=== PATIENT | female | born 1985 | race African-American/Black ===

== ENCOUNTER 2016-07-16 00:27 | Emergency (ER) | payer BC ==
[2016-07-16] MEDS ORDERED: NORMAL SALINE 1000 ML 1,000 ML IV PRN (02:04)
[2016-07-16] MEDS ORDERED: MORPHINE SULFATE 10 MG/ML INJ IV ONE (02:04)
--- NOTE | 2016-07-16 02:04 | ER Document Report ---
ED GI/ - General Chief Complaint: Lower Abdominal Pain Stated Complaint: ABDOMINAL PAIN Time seen by provider: 02:04 Mode of Arrival: Ambulatory Information source: Patient TRAVEL OUTSIDE OF THE [place] IN LAST 30 DAYS: No - HPI Patient complains to provider of: Pelvic pain, Vaginal bleeding Onset: Other - Saturday Timing/Duration: Sudden, Persistent Quality of pain: Achy, Cramping Severity at maximum: Moderate Severity in ED: Moderate Pain Level: 3 Location: Pelvis Menstrual period history: Abnormal Associated symptoms: None Exacerbated by: Denies Relieved by: Denies Similar symptoms previously: Yes Recently seen / treated by doctor: Yes Notes: 07/16/16 02:31 Patient is a 31-year-old female presenting to the emergency room complaining of pelvic cramping with vaginal bleeding that's been going on since Saturday, states 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 and had a transvaginal ultrasound performed, it was quite painful during the procedure and she's been having vaginal bleeding since, prior to that she has not had any vaginal bleeding for 2 years, relates this to using Nexplanon, patient reports that during the ultrasound her physician found possible polyps and would like to schedule her for a preop visit which she has not yet done, patient has a history of endometriosis previously as well, patient denies any nausea vomiting or diarrhea , no dysuria or hematuria, denies - Related Data Allergies/Adverse Reactions: No Known Allergies Allergy (Verified 04/11/16 12:03) Past Medical History - General Information source: Patient - Social History Smoking Status: Current Every Day Smoker Family History: Reviewed & Not Pertinent Patient has suicidal ideation: No Patient has homicidal ideation: No - Past Medical History Cardiac Medical History: Reports: Hx Hypertension Renal/ Medical History: Denies: Hx Peritoneal Dialysis Past Surgical History: Reports: Hx Gynecologic Surgery - See history of present illness. - Immunizations Hx Diphtheria, Pertussis, Tetanus Vaccination: Yes Review of Systems - Review of Systems Constitutional: No symptoms reported EENT: No symptoms reported Cardiovascular: No symptoms reported Respiratory: No symptoms reported Gastrointestinal: No symptoms reported Genitourinary: No symptoms reported Female Genitourinary: See HPI Musculoskeletal: No symptoms reported Skin: No symptoms reported Hematologic/Lymphatic: No symptoms reported Neurological/Psychological: No symptoms reported -: Yes All other systems reviewed and negative Physical Exam - Vital signs Vitals: Temp Pulse Resp BP Pulse Ox 97.7 F 67 18 143/75 H 100 07/16/16 00:45 07/16/16 00:45 07/16/16 00:45 07/16/16 00:45 07/16/16 00:45 Interpretation: Normal - General General appearance: Appears well, Alert - HEENT Head: Normocephalic, Atraumatic Eyes: Normal Pupils: PERRL - Respiratory Respiratory status: No respiratory distress Chest status: Nontender Breath sounds: Normal Chest palpation: Normal - Cardiovascular Rhythm: Regular Heart sounds: Normal auscultation Murmur: No - Abdominal Inspection: Obese Distension: No distension Bowel sounds: Normal Tenderness: Tender - Mild suprapubic Organomegaly: No organomegaly - Genitourinary External exam: Normal Speculum exam: Cervix closed Vaginal bleeding: Mild Bimanuel exam: Normal - Back Back: Normal, Nontender - Extremities General upper extremity: Normal inspection, Nontender, Normal color, Normal ROM , Normal temperature General lower extremity: Normal inspection, Nontender, Normal color, Normal ROM , Normal temperature, Normal weight bearing. No: Ainsley's sign - Neurological Neuro grossly intact: Yes Cognition: Normal Orientation: AAOx4 [place] Coma Scale Eye Opening: Spontaneous [place] Coma Scale Verbal: Oriented [place] Coma Scale Motor: Obeys Commands Mihir Coma Scale Total: 15 Speech: Normal Motor strength normal: LUE, RUE, LLE, RLE Sensory: Normal - Psychological Associated symptoms: Normal affect, Normal mood - Skin Skin Temperature: Warm Skin Moisture: Dry Skin Color: Normal Course - Re-evaluation Re-evalutation: 07/16/16 04:28 Lab and imaging findings discussed with patient at bedside which are relatively unremarkable, chemistry hemolyzed twice, lab came the third time and attempted to draw but were unable to do so, patient reluctant to have further lab draws performed, I explained to her that I was more concerned about the CBC and other labs and chemistry, therefore chemistry was canceled, patient will be discharged with prescription for pain medication and information for follow-up, advised to return if symptoms worsen, patient acknowledges understanding and agreement with this plan - Vital Signs Vital signs: Temp Pulse Resp BP Pulse Ox 97.7 F 67 18 143/75 H 100 07/16/16 00:45 07/16/16 00:45 07/16/16 00:45 07/16/16 00:45 07/16/16 00:45 - Laboratory Result Diagrams: 07/16/16 02:32 07/16/16 02:32 Laboratory results interpreted by me: 07/16/16 07/16/16 02:32 02:32 Seg Neutrophils % 35.9 L Lymphocytes % 51.6 H Urine Blood MODERATE H - Diagnostic Test Radiology reviewed: Image reviewed, Reports reviewed Discharge - Discharge Clinical Impression: Pelvic pain, Vaginal bleeding Condition: Stable Disposition: HOME, SELF-CARE Instructions: Pelvic Pain ([facility]), Vaginal Bleeding ([facility]) Additional Instructions: Follow up with your MASKING MACHINE OPERATOR in 2-3 days. Return to the emergency room immediately if symptoms worsen or any additional concerns. Prescriptions: Oxycodone HCl/Acetaminophen [Percocet 5-325 mg Tablet] 1 - 2 tab PO ASDIR PRN # 15 tablet PRN Reason: Forms: Return to Work
[2016-07-16] MEDS ORDERED: ONDANSETRON HCL INJ/PF 4 MG/2 ML SDV IV ONE (02:42)
[2016-07-16 02:43] LABS: ABSOLUTE BASOPHILS # (AUTO) 0.1 10^3/uL (0.0-0.2); ABSOLUTE EOSINOPHILS # (AUTO) 0.2 10^3/uL (0.0-0.6); ABSOLUTE LYMPHOCYTES (AUTO) 4.3 10^3/uL (0.5-4.7); ABSOLUTE MONOCYTES (AUTO) 0.8 10^3/uL (0.1-1.4); BASOPHILS % (AUTO) 0.7 % (0-2); EOSINOPHILS % (AUTO) 2.7 % (0-6); HEMOGLOBIN 13.3 g/dL (12.0-15.5); HGB HCT DIFFERENCE -1.1; LYMPHOCYTES % (AUTO) 51.6 % (13-45); MEAN CORPUSCULAR HEMOGLOBIN 30.5 pg (27.0-33.4); MEAN CORPUSCULAR HGB CONC 32.3 g/dL (32.0-36.0); MEAN CORPUSCULAR VOLUME 94 fl (80-97); MONOCYTES % (AUTO) 9.1 % (3-13); RED BLOOD COUNT 4.35 10^6/uL (3.72-5.28); RED CELL DISTRIBUTION WIDTH 13.5 % (11.5-14.0); SEGMENTED NEUTROPHILS % (AUTO) 35.9 % (42-78); WHITE BLOOD COUNT 8.4 10^3/uL (4.0-10.5)
[2016-07-16 02:47] LABS: APPEARANCE,URINE CLEAR; BILIRUBIN,URINE NEGATIVE (NEGATIVE); GLUCOSE, URINE NEGATIVE (NEGATIVE); KETONES,URINE NEGATIVE (NEGATIVE); LEUKOCYTE ESTERASE,URINE NEGATIVE (NEGATIVE); NITRITE,URINE NEGATIVE (NEGATIVE); PROTEIN,URINE NEGATIVE (NEGATIVE); URINE SPECIFIC GRAVITY 1.005; UROBILINOGEN,URINE NEGATIVE mg/dL (<2.0)
[2016-07-16 05:22] VITALS: BP 122/88
[2016-07-16 05:32] LABS: CHLAM PCR NOT DETECTED (NOT DETECT)
== END 2016-07-16 05:11 | disposition home or self-care (01) ==
LOC: ER 00:27
DX: R10.2 Pelvic and perineal pain (principal); N93.9 Abnormal uterine and vaginal bleeding, unspecified; R10.30 Lower abdominal pain, unspecified; F17.210 Nicotine dependence, cigarettes, uncomplicated
CPT/HCPCS: 99284; 96361; 96374; 96375; 36415; 87210; 85025; 81025; 81001; 87491; 87591; 76856; 93976; J2270; J2405; J7030

== ENCOUNTER 2016-07-22 15:12 | Emergency (ER) | payer BC ==
--- NOTE | 2016-07-22 15:43 | ER Document Report ---
ED Medical Screen (RME) - General Stated Complaint: WOUND RECHECK Notes: Patient had an I&D performed right medial thigh is here for reevaluation. I greeted and performed a rapid initial assessment of this patient. Comprehensive ED assessment and evaluation of the patient, analysis of test results and completion of the medical decision making process will be conducted by additional ED providers. TRAVEL OUTSIDE OF THE [place] IN LAST 30 DAYS: No - Related Data Allergies/Adverse Reactions: No Known Allergies Allergy (Verified 04/11/16 12:03) Past Medical History - Past Medical History Cardiac Medical History: Reports: Hx Hypertension Renal/ Medical History: Denies: Hx Peritoneal Dialysis Past Surgical History: Reports: Hx Gynecologic Surgery - See history of present illness. - Immunizations Hx Diphtheria, Pertussis, Tetanus Vaccination: Yes Physical Exam - Vital signs Vitals: Temp Pulse Resp BP Pulse Ox 98.6 F 73 20 119/66 100 07/22/16 15:40 07/22/16 15:40 07/22/16 15:40 07/22/16 15:40 07/22/16 15:40 Course - Vital Signs Vital signs: Temp Pulse Resp BP Pulse Ox 98.6 F 73 20 119/66 100 07/22/16 15:40 07/22/16 15:40 07/22/16 15:40 07/22/16 15:40 07/22/16 15:40
--- NOTE | 2016-07-22 17:11 | ER Document Report ---
HPI - HPI Patient complains to provider of: wound check Pain Level: 4 Context: Patient is a 31-year-old female presents emergency department for wound check today. Patient states she had a medial 5 cyst drained on at her PCPs office and she comes in today with complaints of drainage and pain at the site. Patient states that she has only been taking Motrin for her pain but otherwise she is complaining of friction from her pants at the site and has questions about healing. Otherwise she denies any fevers or chills any additional bleeding from the site just mild drainage. Otherwise a healthy female - CARDIOVASCULAR Cardiovascular: DENIES: Chest pain - REPRODUCTIVE Reproductive: DENIES: : - DERM Skin Color: Normal Past Medical History - General Information source: Patient - Social History Smoking Status: Unknown if Ever Smoked Family History: Reviewed & Not Pertinent Patient has suicidal ideation: No Patient has homicidal ideation: No - Past Medical History Cardiac Medical History: Reports: Hx Hypertension Renal/ Medical History: Denies: Hx Peritoneal Dialysis Past Surgical History: Reports: Hx Gynecologic Surgery - See history of present illness. - Immunizations Hx Diphtheria, Pertussis, Tetanus Vaccination: Yes Vertical Provider Document - CONSTITUTIONAL Agree With Documented VS: Yes Exam Limitations: No Limitations General Appearance: WD/WN, No Apparent Distress - INFECTION CONTROL TRAVEL OUTSIDE OF THE [place] IN LAST 30 DAYS: No - RESPIRATORY O2 Sat by Pulse Oximetry: 100 - DERM Integumentary: Warm, Dry Notes: Evidence of a 2 cm in diameter lesion that could then I indeed previously with minor packing. No evidence of additional fluid collections tender to palpation but otherwise healing as expected. Course - Re-evaluation Re-evalutation: 07/22/16 23:10 Patient is a 31-year-old female presents emergency Department complaining of abscessed pain. She is concerned that more needs to be drained but there is no evidence of additional fluid collections to be drained. Patient educated on abscess and I&D care and can follow-up with her primary care provider as scheduled - Vital Signs Vital signs: Temp Pulse Resp BP Pulse Ox 98.6 F 73 20 119/66 100 07/22/16 15:40 07/22/16 15:40 07/22/16 15:40 07/22/16 15:40 07/22/16 15:40 Discharge - Discharge Clinical Impression: Wound check, abscess Condition: Good Disposition: HOME, SELF-CARE Additional Instructions: ABSCESS: You have an abscess (boil). This a pus-forming infection, usually due to staph. Some boils may be left to drain on their own, but most require lancing. From the time the tender lump first appears, it may be three or four days before the abscess is ready to elias. Local heat and rest help at this stage of treatment. An antibiotic may prevent spread of the infection. Once the abscess is opened, packing may be placed into it. This is done so pus is not sealed inside by premature closure of the cavity. The packing will be removed at your follow-up visit or you may be advised to remove it yourself at home. Sometimes this packing must be replaced a few times during healing. The wound will heal with surprisingly little scar. Depending on the size and location of an abscess, healing can take one to four weeks. You may shower and wash the area around the incision site two or three times a day. Antibiotics may be prescribed, but are usually not necessary after an abscess has been drained. If you develop fever, chills, worsening pain, or increasing swelling in the area, call the doctor or return immediately. POST INCISION AND DRAINAGE: You have had an incision made to allow drainage of an abscess. The incision must remain open so that pus and debris can drain from the wound. If the abscess cavity is large, packing is placed. This keeps the tissues from collapsing and trapping pus inside, while the body shrinks the cavity. The packing may need to be replaced every day or two. The physician will instruct you on the packing. Keep a bulky dressing over the area. Replace it if it becomes saturated with blood or pus. Do not disturb the packing (if present). You may shower and cleanse the area with gentle soap and warm water two or three times a day. Local warmth may be soothing, and may promote faster healing. Return if you develop high fever or chills, or if you note spreading redness, increasing swelling, or increasing tenderness. ORAL NARCOTIC MEDICATION: You have been given a prescription for pain control. This medication is a narcotic. It's best taken with food, as nausea can result if taken on an empty stomach. Don't operate machinery or drive within six hours of taking this medication. Do not combine this medicine with alcohol, or with any medication which can cause sedation (such as cold tablets or sleeping pills) unless you get permission from the physician. Narcotics tend to cause constipation. If possible, drink plenty of fluids and eat a diet high in fiber and fruits. CEPHALEXIN: The antibiotic you've been prescribed is a member of the cephalosporin class. This type of antibiotic covers a wide variety of infections, including those of the skin, lungs, and urinary tract. It's useful for staph infections. This antibiotic is slightly similar to the penicillin family. In rare cases , a person who is allergic to penicillin will also be allergic to this medication. If you have had a severe allergic reaction to penicillin, and have not taken this antibiotic since that time, notify your doctor. Antibiotics which cover many germs ("broad spectrum" antibiotics) are more likely to cause diarrhea or "yeast" infections. Women prone to vaginal yeast problems may suffer an attack after taking this antibiotic. In infants, oral thrush (white spots "stuck" on the cheek) or yeast diaper rash may result. See your doctor if these problems occur. Call at once if you develop itching, hives , shortness of breath, or lightheadedness. FOLLOW-UP CARE: Most simple abscesses will not require a follow up visit. If you had packing placed in the abscess, remove it as instructed by the physician. If you have been referred to a physician for follow-up care, call the physicians office for an appointment as you were instructed or within the next two days. If you experience worsening or a significant change in your symptoms, return to the Emergency Department at any time for re-evaluation. Prescriptions: Oxycodone HCl/Acetaminophen [Percocet 5-325 mg Tablet] 1 tab PO Q4HP PRN #10 tablet PRN Reason: Referrals: THERESA OCONNELL MD [Primary Care Provider] - Follow up in 1 week
[2016-07-22 18:00] VITALS: BP 132/72
== END 2016-07-22 17:33 | disposition home or self-care (01) ==
LOC: ER 15:12
DX: L72.8 Other follicular cysts of the skin and subcutaneous tissue (principal)
CPT/HCPCS: 99282

== ENCOUNTER 2016-07-25 10:40 | Emergency (ER) | payer BC ==
--- NOTE | 2016-07-25 10:48 | ER Document Report ---
ED Medical Screen (RME) - General Stated Complaint: PELVIC PAIN Notes: 31 yo female c/o pelvic pain x 2-3 days, progressively worsening. + vaginal discharge, + odor, no pain. + nausea, no vomiting. no urinary symptoms. + hx/ o endometriosis. this pain is similar but worse. TRAVEL OUTSIDE OF THE [place] IN LAST 30 DAYS: No - Related Data Allergies/Adverse Reactions: No Known Allergies Allergy (Verified 04/11/16 12:03) Past Medical History - Past Medical History Cardiac Medical History: Reports: Hx Hypertension Renal/ Medical History: Denies: Hx Peritoneal Dialysis Past Surgical History: Reports: Hx Gynecologic Surgery - See history of present illness. - Immunizations Hx Diphtheria, Pertussis, Tetanus Vaccination: Yes
--- NOTE | 2016-07-25 12:28 | ER Document Report ---
ED General - General Chief Complaint: Abdominal Pain Stated Complaint: PELVIC PAIN Mode of Arrival: Ambulatory Information source: Patient Notes: Patient is a 31 yo female with PMHx of endometriosis who presents with 2-3 day history of cramping constant lower pelvic pain. She endorses associated nausea and vaginal discharge (white/clear) with odor but denies any vaginal bleeding, fever, chills, vomiting, diarrhea, melena, BRBPR, hematuria or dysuruia. She received OBGYN care from [facility] and was told she most likely would need surgery. She had pelvic US on 07/12/16 and was told she had "fluid in her uterus." She has tried 800 mg ibuprofen which has not provided relief and applied heat which does provide minimal relief. She is sexually active, uses Nexplanon for contraception. TRAVEL OUTSIDE OF THE [place] IN LAST 30 DAYS: No - Related Data Allergies/Adverse Reactions: No Known Allergies Allergy (Verified 07/25/16 10:46) Past Medical History - Social History Smoking Status: Never Smoker Chew tobacco use (# tins/day): No Frequency of alcohol use: None Drug Abuse: None Family History: Reviewed & Not Pertinent Patient has suicidal ideation: No Patient has homicidal ideation: No - Past Medical History Cardiac Medical History: Reports: Hx Hypertension Renal/ Medical History: Denies: Hx Peritoneal Dialysis Past Surgical History: Reports: Hx Gynecologic Surgery - See history of present illness. - Immunizations Hx Diphtheria, Pertussis, Tetanus Vaccination: Yes Review of Systems - Review of Systems Constitutional: See HPI EENT: No symptoms reported Cardiovascular: No symptoms reported Respiratory: No symptoms reported Gastrointestinal: No symptoms reported Genitourinary: See HPI Female Genitourinary: See HPI Musculoskeletal: No symptoms reported Skin: No symptoms reported Hematologic/Lymphatic: No symptoms reported Neurological/Psychological: No symptoms reported Physical Exam - Vital signs Vitals: Temp Pulse Resp BP Pulse Ox 98.1 F 74 20 135/74 H 100 07/25/16 10:43 07/25/16 10:43 07/25/16 10:43 07/25/16 10:43 07/25/16 10:43 Interpretation: Hypertensive - but otherwise normal - Notes Notes: PHYSICAL EXAM: CONSTITUTIONAL: Alert and oriented, well-appearing and in no acute distress. HENT: Normocephalic, atraumatic. Moist mucous membranes. EYES: Pupils equal round and reactive to light, EOM intact. Sclera anicteric, conjunctiva are normal. No entrapment. HEART: Regular rate and rhythm without murmurs. LUNGS: CTAB and equal. No wheezes, rales or rhonchi. GI: Normactive bowel sounds. Soft, tender to palpation in suprapubic region, no rebound or guarding, non-distended. No organomegaly. no CVAT. LICENSED AUDIOLOGIST: External exam normal. No rashes or lesions. Scant white vaginal discharge, no vaginal bleeding. Cervix without lesions. No cervical motion tenderness. NEURO: Cranial nerves grossly intact. Normal sensory/motor exams. PSYCH: Normal mood, normal affect. SKIN: Warm and dry. Normal turgor. No rashes or lesions noted. Course - Re-evaluation Re-evalutation: I have consulted with the supervisory physician per [facility] guidelines. Patient seen and examined. Abdominal exam soft with tenderness to suprapubic region but no peritoneal signs, rebound, guarding. Pelvic exam with scant white discharge and tenderness but no vagina bleeding. Remainder of lab work unremarkable, G/C pending. CT of A/P with IV contrast negative for acute abnormalities other than moderate stool. Give IV pain medication with did provide relief. Discussed results of labs/imaging studies with patient- feel her pain is a flare of her endometriosis with concomittant constipation. Given scripts for pain/stool softener, advised to follow-up with OBGYN. Discharged home in stable condition. - Vital Signs Vital signs: Temp Pulse Resp BP Pulse Ox 98.6 F 98 18 130/67 H 100 07/25/16 16:28 07/25/16 16:28 07/25/16 16:28 07/25/16 16:28 07/25/16 16:28 - Laboratory Result Diagrams: 07/25/16 12:32 07/25/16 12:32 Laboratory results interpreted by me: 07/25/16 07/25/16 07/25/16 11:55 12:32 12:32 Seg Neutrophils % 41.3 L Lymphocytes % 47.7 H Total Protein 8.4 H Urine Ketones 80 H Urine Blood SMALL H Reviewed. - Diagnostic Test Radiology reviewed: Image reviewed, Reports reviewed Radiology results interpreted by me: 07/25/16 19:11 Negative for acute abnormal findings on CT of A/P with IV Cont. Discharge - Discharge Clinical Impression: Pelvic pain, Personal history of endometriosis Constipation Qualifiers: Constipation type: unspecified constipation type Qualified Code(s): K59.00 - Constipation, unspecified Condition: Stable Disposition: HOME, SELF-CARE Additional Instructions: ABDOMINAL PAIN: There are many causes of abdominal pain. Pain can mean a serious problem requiring surgery (such as appendicitis). It can also be an innocent problem that goes away on its own (such as a viral infection). Often, time must pass to determine the cause of pain. The physician does not feel that hospitalization is necessary, at present. Things may change within the next 24 hours. Call the doctor or come back for re- examination if any problems occur, such as: (1) Pain that becomes more severe, steady, or becomes concentrated in one specific area. Also, pain that is more severe with movement or coughing. (2) Vomiting that persists or becomes more frequent. (3) Blood in the vomitus, urine, or bowel movements. Blood in the stool may have a tarry or black appearance. (4) Shaking chills or fever greater than 100 degrees F. (5) The abdomen becomes more distended or swollen. (6) Bowel movements cease. (7) Failure to improve as expected. NORMAL EXAM AND WORKUP: At this time, your examination and workup show no significant abnormality. No significant abnormal physical findings are noted. All laboratory, EKG, and imaging (x-ray, CT scans, ultrasound) studies that were ordered show no significant abnormality. Although your examination and all studies that were ordered showed no significant abnormal finding, there are no examinations and no studies that are 100% accurate. There is always the possibility that some abnormality could exist and not be detected with physical examination or within the limits and capabilities of laboratory and other studies. You should return or follow up as you were instructed on your visit today for further evaluation if your symptoms do not resolve. CONSTIPATION: Constipation is a common problem. It is especially likely as you get older. Constipation is a common cause of abdominal pain, but sometimes causes no symptoms at all. Causes of constipation include certain medications, dehydration, diets, inactivity, and low-fiber intake. Rarely, it can be a symptom of underlying disease. The physician has evaluated you for this. Avoid constipation by eating a diet high in fiber, fruits, and vegetables. Drink plenty of liquids. Get regular exercise. If possible, avoid constipating medicines like narcotic pain medication. Some vitamin tablets can cause constipation. Stool softeners may be needed for difficult cases. An excellent stool softener is Konsyl which is available at [employer], and [employer] drug [employer]. Just add a teaspoon to a glass of pineapple or orange juice daily or twice a day if needed. Laxatives are useful for occasional constipation. You should use them only when necessary. Too-frequent use can make your bowels dependent on them. Some over the counter laxatives available without prescription are: Milk of Magnesia, 1-2 tablespoons twice a day Dulcolax, 5 mg pill or 10 mg suppository. Citrate of Magnesia, 4-5 ounces a day for a day or two For acute constipation, Fleet's Enemas and Dulcolax suppositories are helpful. Chronic, termite exterminator helper use of laxatives or enemas is not a good idea. Your bowel may become dependant on them. You do not need to have a bowel movement every day. Many people do fine with a bowel movement every three or four days. You should call your doctor or return for re-evaluation if you pass blood in the stool, or if you develop fever or increasing abdominal pain. BULK LAXATIVES: Bulk laxatives make the stool softer and bulkier. They're useful for preventing constipation. You can choose between psyllium, methylcellulose, and polycarbophil. They are available without a prescription. Psyllium brand names include Konsyl, Metamucil, Perdiem, Effer-Syllium and Hydrocil. It's available as powder, flavored drink powder, or chewable. The usual dose of psyllium powder is one heaping teaspoon in water each morning, increasing to twice a day if needed. Navarro juice can disguise the slightly grainy texture. Methylcellulose is marketed as Citrucel and other brands. The average dose is two grams in a cup of water one to three times a day. Polycarbophil is marketed as Fiber-Con. Take two tablets with a cup of water one to three times a day. LAXATIVE: A laxative agent has been prescribed for your condition. This should result in passage of stool within 12 hours. Some mild intestinal cramping is common as the hard stool begins to move. You may have loose or runny stools for a short time. Contact your doctor if there is severe cramping, vomiting, or passage of blood. Return for further care if this medicine fails to improve your condition. FOLLOW-UP CARE: If you have been referred to a physician for follow-up care, call the physician s office for an appointment as you were instructed or within the next two days. If you experience worsening or a significant change in your symptoms, notify the physician immediately or return to the Emergency Department at any time for re-evaluation. Prescriptions: Tramadol HCl [Ultram] 50 mg PO Q8HP PRN #10 tablet PRN Reason: Docusate Sodium [Colace 100 mg Capsule] 100 mg PO DAILY #30 capsule Forms: Elevated Blood Pressure Referrals: THERESA OCONNELL MD [Primary Care Provider] - Follow up as needed
[2016-07-25 12:42] LABS: APPEARANCE,URINE CLEAR; BILIRUBIN,URINE NEGATIVE (NEGATIVE); GLUCOSE, URINE NEGATIVE (NEGATIVE); KETONES,URINE 80 mg/dL (NEGATIVE); LEUKOCYTE ESTERASE,URINE NEGATIVE (NEGATIVE); NITRITE,URINE NEGATIVE (NEGATIVE); PROTEIN,URINE NEGATIVE (NEGATIVE); URINE SPECIFIC GRAVITY 1.019; UROBILINOGEN,URINE NEGATIVE mg/dL (<2.0)
[2016-07-25 13:07] LABS: ABSOLUTE EOSINOPHILS # (AUTO) 0.1 10^3/uL (0.0-0.6); ABSOLUTE LYMPHOCYTES (AUTO) 3.1 10^3/uL (0.5-4.7); ABSOLUTE MONOCYTES (AUTO) 0.6 10^3/uL (0.1-1.4); ABSOLUTE NEUT (AUTO) 2.6 10^3/uL (1.7-8.2); BASOPHILS % (AUTO) 0.6 % (0-2); EOSINOPHILS % (AUTO) 1.6 % (0-6); HEMATOCRIT 42.2 % (36.0-47.0); HEMOGLOBIN 14.1 g/dL (12.0-15.5); HGB HCT DIFFERENCE 0.1; LYMPHOCYTES % (AUTO) 47.7 % (13-45); MEAN CORPUSCULAR HEMOGLOBIN 31.2 pg (27.0-33.4); MEAN CORPUSCULAR HGB CONC 33.4 g/dL (32.0-36.0); MEAN CORPUSCULAR VOLUME 93 fl (80-97); MONOCYTES % (AUTO) 8.8 % (3-13); RED BLOOD COUNT 4.51 10^6/uL (3.72-5.28); RED CELL DISTRIBUTION WIDTH 13.6 % (11.5-14.0); SEGMENTED NEUTROPHILS % (AUTO) 41.3 % (42-78); WHITE BLOOD COUNT 6.4 10^3/uL (4.0-10.5)
[2016-07-25] MEDS ORDERED: KETOROLAC TROMETHAMINE INJ/PF 30 MG/1 ML SDV IV ONE (13:11)
[2016-07-25 13:23] LABS: ALANINE AMINOTRANSFERASE 29 U/L (9-52); ALBUMIN 4.8 g/dL (3.5-5.0); ALKALINE PHOSPHATASE 80 U/L (38-126); ANION GAP 14 (5-19); ASPARTATE AMINO TRANSFERASE 27 U/L (14-36); BILIRUBIN,TOTAL 0.6 mg/dL (0.2-1.3); BLOOD UREA NITROGEN 12 mg/dL (7-20); CARBON DIOXIDE 26 mmol/L (22-30); CHLORIDE 104 mmol/L (98-107); GLUCOSE 83 mg/dL (75-110); POTASSIUM 4.4 mmol/L (3.6-5.0); SODIUM 143.7 mmol/L (137-145); TOTAL PROTEIN 8.4 g/dL (6.3-8.2)
[2016-07-25] MEDS ORDERED: HYDROCODONE/ACETAMINOPHEN 5-325 MG TABLET PO ONE (13:44)
[2016-07-25 15:21] LABS: CHLAM PCR NOT DETECTED (NOT DETECT)
[2016-07-25 16:48] VITALS: BP 130/67
== END 2016-07-25 16:30 | disposition home or self-care (01) ==
LOC: ER 10:40
DX: K59.00 Constipation, unspecified (principal); R10.9 Unspecified abdominal pain; R10.2 Pelvic and perineal pain; N80.9 Endometriosis, unspecified
CPT/HCPCS: 99284; 96374; 36415; 87210; 85025; 81025; 80053; 81001; 87491; 87591; 74177; J1885

== ENCOUNTER 2016-08-26 17:02 | Emergency (ER) | payer BC ==
[2016-08-26] MEDS ORDERED: OXYCODONE-ACETAMINOPHEN 5-325 MG TABLET PO ONE (17:13)
--- NOTE | 2016-08-26 17:14 | ER Document Report ---
ED Medical Screen (RME) - General Stated Complaint: ABDOMINAL CRAMPING Time seen by provider: 17:10 Mode of Arrival: Ambulatory Information source: Patient Notes: Patient states she has a history of endometriosis, and is having a flareup. Light vaginal bleeding started last night, the patient has a lot of abdominal cramping. Patient states she is supposed to have a laparoscopic procedure to further evaluate the endometriosis. Denies fever, no nausea, vomiting, or diarrhea. Denies vaginal discharge prior to symptoms. I have greeted and performed a rapid initial assessment of this patient. A comprehensive ED assessment and evaluation of the patient, analysis of test results and completion of the medical decision making process will be conducted by additional ED providers. TRAVEL OUTSIDE OF THE [place] IN LAST 30 DAYS: No - Related Data Allergies/Adverse Reactions: No Known Allergies Allergy (Verified 08/26/16 17:12) Past Medical History - Past Medical History Cardiac Medical History: Reports: Hx Hypertension Renal/ Medical History: Denies: Hx Peritoneal Dialysis Past Surgical History: Reports: Hx Gynecologic Surgery - See history of present illness. - Immunizations Hx Diphtheria, Pertussis, Tetanus Vaccination: Yes Physical Exam - Vital signs Vitals: Temp Pulse Resp BP Pulse Ox 98.0 F 90 13 155/75 H 100 08/26/16 17:12 08/26/16 17:12 08/26/16 17:12 08/26/16 17:12 08/26/16 17:12 - Abdominal Inspection: Normal Notes: Abdomen soft, tenderness noted lower abdomen. Course - Vital Signs Vital signs: Temp Pulse Resp BP Pulse Ox 98.0 F 90 13 155/75 H 100 08/26/16 17:12 08/26/16 17:12 08/26/16 17:12 08/26/16 17:12 08/26/16 17:12
[2016-08-26 17:45] LABS: APPEARANCE,URINE CLEAR; BILIRUBIN,URINE NEGATIVE (NEGATIVE); GLUCOSE, URINE NEGATIVE (NEGATIVE); KETONES,URINE NEGATIVE (NEGATIVE); LEUKOCYTE ESTERASE,URINE NEGATIVE (NEGATIVE); NITRITE,URINE NEGATIVE (NEGATIVE); PROTEIN,URINE NEGATIVE (NEGATIVE); URINE SPECIFIC GRAVITY 1.015; UROBILINOGEN,URINE NEGATIVE mg/dL (<2.0)
[2016-08-26] MEDS ORDERED: HYDROCODONE/ACETAMINOPHEN 5-325 MG 6 TAB/DSPK PO PRN (18:55)
--- NOTE | 2016-08-26 18:58 | ER Document Report ---
ED GI/ - General Chief Complaint: Abdominal Cramping Stated Complaint: ABDOMINAL CRAMPING Time seen by provider: 18:57 Mode of Arrival: Ambulatory Information source: Patient TRAVEL OUTSIDE OF THE [place] IN LAST 30 DAYS: No - HPI Patient complains to provider of: Pelvic pain, Vaginal bleeding Onset: Yesterday Timing/Duration: Gradual Quality of pain: Achy Severity at maximum: Moderate Severity in ED: Moderate Pain Level: 3 Location: Pelvis Vaginal bleeding (Compared to normal period): [employer] Associated symptoms: Nausea Exacerbated by: Denies Relieved by: Denies Similar symptoms previously: Yes Recently seen / treated by doctor: Yes Notes: 08/27/16 04:14 Patient is a 31-year-old female with a history of endometriosis who presents to the emergency room complaining of pelvic cramping and vaginal bleeding started yesterday, she reports her symptoms are similar to endometriosis flareups that she's had in the past, she follows with [facility] OPER[facility] in the [facility], [place], and reportedly is waiting a laparoscopic procedure for further treatment of her endometriosis, she denies any nausea, vomiting or diarrhea, no dysuria or hematuria - Related Data Allergies/Adverse Reactions: No Known Allergies Allergy (Verified 08/26/16 17:12) Past Medical History - General Information source: Patient - Social History Smoking Status: Unknown if Ever Smoked Chew tobacco use (# tins/day): No Frequency of alcohol use: None Drug Abuse: None Family History: Reviewed & Not Pertinent Patient has suicidal ideation: No Patient has homicidal ideation: No - Past Medical History Cardiac Medical History: Reports: Hx Hypertension Renal/ Medical History: Denies: Hx Peritoneal Dialysis Past Surgical History: Reports: Hx Gynecologic Surgery - See history of present illness. - Immunizations Hx Diphtheria, Pertussis, Tetanus Vaccination: Yes Review of Systems - Review of Systems Constitutional: No symptoms reported EENT: No symptoms reported Cardiovascular: No symptoms reported Respiratory: No symptoms reported Gastrointestinal: No symptoms reported Genitourinary: No symptoms reported Female Genitourinary: See HPI Musculoskeletal: No symptoms reported Skin: No symptoms reported Hematologic/Lymphatic: No symptoms reported Neurological/Psychological: No symptoms reported -: Yes All other systems reviewed and negative Physical Exam - Vital signs Vitals: Temp Pulse Resp BP Pulse Ox 98.0 F 90 13 155/75 H 100 08/26/16 17:12 08/26/16 17:12 08/26/16 17:12 08/26/16 17:12 08/26/16 17:12 Interpretation: Normal - General General appearance: Appears well, Alert - HEENT Head: Normocephalic, Atraumatic Eyes: Normal Pupils: PERRL - Respiratory Respiratory status: No respiratory distress Chest status: Nontender Breath sounds: Normal Chest palpation: Normal - Cardiovascular Rhythm: Regular Heart sounds: Normal auscultation Murmur: No - Abdominal Inspection: Normal Distension: No distension Bowel sounds: Normal Tenderness: Tender - Suprapubic Organomegaly: No organomegaly - Back Back: Normal, Nontender - Extremities General upper extremity: Normal inspection, Nontender, Normal color, Normal ROM , Normal temperature General lower extremity: Normal inspection, Nontender, Normal color, Normal ROM , Normal temperature, Normal weight bearing. No: Ainsley's sign - Neurological Neuro grossly intact: Yes Cognition: Normal Orientation: AAOx4 Mihir Coma Scale Eye Opening: Spontaneous Mihir Coma Scale Verbal: Oriented Reinholds Coma Scale Motor: Obeys Commands Mihir Coma Scale Total: 15 Speech: Normal Motor strength normal: LUE, RUE, LLE, RLE Sensory: Normal - Psychological Associated symptoms: Normal affect, Normal mood - Skin Skin Temperature: Warm Skin Moisture: Dry Skin Color: Normal Course - Re-evaluation Re-evalutation: 08/27/16 04:15 Patient symptoms consistent with endometriosis, she was provided with pain medication and advised to follow-up with her SWITCHBOARD OPERATOR RECEPTIONIST in the next 2-3 days or return if symptoms worsen, patient acknowledges understanding and agreement with this plan - Vital Signs Vital signs: Temp Pulse Resp BP Pulse Ox 98.4 F 68 16 128/73 H 99 08/26/16 19:25 08/26/16 19:25 08/26/16 19:25 08/26/16 19:25 08/26/16 19:25 - Laboratory Laboratory results interpreted by me: 08/26/16 17:25 Urine Blood LARGE H Discharge - Discharge Clinical Impression: Pelvic pain, Endometriosis Condition: Stable Disposition: HOME, SELF-CARE Instructions: Pelvic Pain ([facility]), Endometriosis ([facility]) Additional Instructions: Follow up with your SWITCHBOARD OPERATOR RECEPTIONIST in one to 2 days. Return to the emergency room immediately if symptoms worsen or any additional concerns. Prescriptions: Hydrocodone/Acetaminophen [Hydrocodon-Acetaminophen 5-325] 1 each PO Q6 #20 tablet Forms: Return to Work Referrals: THERESA OCONNELL MD [Primary Care Provider] - Follow up as needed
[2016-08-26 19:54] VITALS: BP 128/73
== END 2016-08-26 19:55 | disposition home or self-care (01) ==
LOC: ER 17:02
DX: N80.9 Endometriosis, unspecified (principal); R10.2 Pelvic and perineal pain; R11.0 Nausea; N93.9 Abnormal uterine and vaginal bleeding, unspecified; I10 Essential (primary) hypertension
CPT/HCPCS: 81001; 81025; 99284

== ENCOUNTER 2016-09-05 08:59 | Emergency (ER) | payer BC ==
[2016-09-05 11:11] LABS: APPEARANCE,URINE CLEAR; BILIRUBIN,URINE NEGATIVE (NEGATIVE); GLUCOSE, URINE NEGATIVE (NEGATIVE); KETONES,URINE TRACE mg/dL (NEGATIVE); LEUKOCYTE ESTERASE,URINE NEGATIVE (NEGATIVE); NITRITE,URINE NEGATIVE (NEGATIVE); PROTEIN,URINE NEGATIVE (NEGATIVE); URINE SPECIFIC GRAVITY 1.028; UROBILINOGEN,URINE NEGATIVE mg/dL (<2.0)
--- NOTE | 2016-09-05 11:36 | ER Document Report ---
ED Medical Screen (RME) - General Chief Complaint: Abdominal Pain Stated Complaint: ABDOMINAL CRAMPING Time seen by provider: 11:35 Mode of Arrival: Ambulatory Information source: Patient Notes: 31-year-old female presents to ED for lower pelvic pain. She has a history of endometriosis and have and is having a endometrial flare. She states she was scheduled to see the BREAKER TENDER on Saturday but he had to cancel the appointment and has rescheduled it for next . She states she supposed to have surgery at some point for the endometriosis and she was really upset that he was had to cancel her appointment. She states she usually takes ibuprofen and hydrocodone for her pain. She states she has ibuprofen in her purse that but has not taken it this morning. She will take her 800 ibuprofen right now and be seen in the emergency room for her pain. I have greeted and performed a rapid initial assessment of this patient. A comprehensive ED assessment and evaluation of the patient, analysis of test results and completion of medical decision making process will be conducted by an additional ED providers. TRAVEL OUTSIDE OF THE [place] IN LAST 30 DAYS: No - Related Data Allergies/Adverse Reactions: No Known Allergies Allergy (Verified 09/05/16 09:23) Past Medical History - Social History Chew tobacco use (# tins/day): No Frequency of alcohol use: None Drug Abuse: None - Past Medical History Cardiac Medical History: Reports: Hx Hypertension Renal/ Medical History: Denies: Hx Peritoneal Dialysis Past Surgical History: Reports: Hx Gynecologic Surgery - See history of present illness. - Immunizations Hx Diphtheria, Pertussis, Tetanus Vaccination: Yes Physical Exam - Vital signs Vitals: Temp Pulse Resp BP Pulse Ox 97.8 F 69 18 125/76 100 09/05/16 09:15 09/05/16 09:15 09/05/16 09:15 09/05/16 09:15 09/05/16 09:15 Course - Vital Signs Vital signs: Temp Pulse Resp BP Pulse Ox 97.8 F 69 18 125/76 100 09/05/16 09:15 09/05/16 09:15 09/05/16 09:15 09/05/16 09:15 09/05/16 09:15 - Laboratory Laboratory results interpreted by me: 09/05/16 10:35 Urine Ketones TRACE H
--- NOTE | 2016-09-05 12:10 | ER Document Report ---
HPI - HPI Patient complains to provider of: pelvic pain Onset: Other Onset/Duration: Persistent Quality of pain: Achy, Cramping Pain Level: 4 Context: Patient complains of lower pelvic pain for the past 2 days. Patient states she has a history of endometriosis and is having a flareup today. Patient denies any vaginal bleeding, discharge, or urinary symptoms. Patient states pain is typical when she's had flareups with her endometriosis in the past. Patient states that she is currently saving money so that she can take off work to be out to have surgery to treat her endometriosis. Associated Symptoms: Other. denies: Fever, Nausea - Pelvic pain Exacerbated by: Denies Relieved by: Denies Similar symptoms previously: Yes Recently seen / treated by doctor: No - ROS ROS below otherwise negative: Yes Systems Reviewed and Negative: Yes All other systems reviewed and negative - CONSTITUTIONAL Constitutional: DENIES: Fever, Chills - NEURO Neurology: DENIES: Weakness - RESPIRATORY Respiratory: DENIES: Trouble Breathing, Coughing - GASTROINTESTINAL Gastrointestinal: REPORTS: Abdominal Pain. DENIES: Nausea, Patient vomiting - URINARY Urinary: DENIES: Dysuria, Urgency, Frequency - REPRODUCTIVE Reproductive: DENIES: : - MUSCULOSKELETAL Musculoskeletal: DENIES: Extremity pain, Back Pain - DERM Skin Color: Normal Skin Problems: None Past Medical History - General Information source: Patient - Social History Smoking Status: Never Smoker Chew tobacco use (# tins/day): No Frequency of alcohol use: None Drug Abuse: None Occupation: childcare Lives with: Family Family History: Reviewed & Not Pertinent Patient has suicidal ideation: No Patient has homicidal ideation: No - Past Medical History Cardiac Medical History: Reports: Hx Hypertension Renal/ Medical History: Reports: Other - Endometriosis. Denies: Hx Peritoneal Dialysis Past Surgical History: Reports: Hx Gynecologic Surgery - See history of present illness. - Immunizations Hx Diphtheria, Pertussis, Tetanus Vaccination: Yes Vertical Provider Document - CONSTITUTIONAL Agree With Documented VS: Yes Exam Limitations: No Limitations General Appearance: WD/WN, No Apparent Distress Notes: PHYSICAL EXAMINATION: GENERAL: Well-appearing and in no acute distress. HEAD: Atraumatic, normocephalic. EYES: sclera anicteric, conjunctiva are normal. ENT: nares patent. Moist mucous membranes. NECK: Normal range of motion, supple without lymphadenopathy LUNGS: CTAB and equal. No wheezes rales or rhonchi. HEART: Regular rate and rhythm without murmurs ABDOMEN: Soft, mild suprapubic tenderness normal bowel sounds, no guarding. EXTREMITIES: Normal range of motion, no pitting edema. No cyanosis. BACK: No CVA tenderness NEUROLOGICAL: Cranial nerves grossly intact. Normal speech. PSYCH: Normal mood, normal affect. SKIN: Warm, Dry, normal turgor, no rashes or lesions noted - INFECTION CONTROL TRAVEL OUTSIDE OF THE [place] IN LAST 30 DAYS: No - HEENT HEENT: Atraumatic, Normocephalic - RESPIRATORY O2 Sat by Pulse Oximetry: 100 Course - Re-evaluation Re-evalutation: 09/05/16 12:06 Offered patient pelvic examination, patient declined stating that she has no concern about STD infection at this time. Patient states that symptoms are typical of her flareups with her endometriosis. Patient states that she missed her appointment yesterday and has an appointment next week. Patient states that Motrin has not been covering her pain symptoms. Discussed patient's narcotic profile with patient. Patient states that frequently she will have to miss work due to her endometriosis and is in the process of stating up money so that she can be out of work to have her surgical procedure for definitive management of her endometriosis. Patient encouraged to follow-up with her primary doctor for pain management referral as well as to recheck with her object oriented programmer for a recheck of her symptoms. Patient advised that only a small amount of pain medication would be written today and that she will need to follow-up with her primary doctor or her object oriented programmer for further pain management. Patient advised that emergency department does not refill narcotic prescriptions. - Vital Signs Vital signs: Temp Pulse Resp BP Pulse Ox 97.8 F 69 18 125/76 100 09/05/16 09:15 09/05/16 09:15 09/05/16 09:15 09/05/16 09:15 09/05/16 09:15 - Laboratory Laboratory results interpreted by me: 09/05/16 10:35 Urine Ketones TRACE H 09/05/16 12:08 Labs- Entire Visit 09/05/16 10:35 Urine Color YELLOW Urine Appearance CLEAR Urine pH 5.0 Ur Specific [place] 1.028 Urine Protein NEGATIVE Urine Glucose (UA) NEGATIVE Urine Ketones TRACE H Urine Blood NEGATIVE Urine Nitrite NEGATIVE Urine Bilirubin NEGATIVE Urine Urobilinogen NEGATIVE Ur Leukocyte Esterase NEGATIVE Urine WBC (Auto) 0 Urine RBC (Auto) 1 Squamous Epi Cells Auto 2 Urine Mucus (Auto) OCC Urine Ascorbic Acid NEGATIVE Urine HCG, Qual NEGATIVE Discharge - Discharge Clinical Impression: Pelvic pain, Hx of endometriosis Condition: Stable Disposition: HOME, SELF-CARE Instructions: Abdominal Pain ([facility]), Endometriosis ([facility]), Use of Over-The- Counter Ibuprofen ([facility]), Oral Narcotic Medication ([facility]), Chronic Pain Control ( [facility]) Additional Instructions: Return immediately for any new or worsening symptoms Followup with your primary care provider, call tomorrow to make a followup appointment You may need to see pain management to further manage chronic pain The emergency department does not refill narcotic prescriptions Follow-up with your object oriented programmer for recheck, call tomorrow for an appointment time Prescriptions: Hydrocodone/Acetaminophen [Milner 5-325 Tablet] 1 each PO Q4 PRN #12 tablet PRN Reason: Forms: Return to Work Referrals: THERESA OCONNELL MD [Primary Care Provider] - Follow up tomorrow
[2016-09-05 12:58] VITALS: BP 129/78
== END 2016-09-05 12:58 | disposition home or self-care (01) ==
LOC: ER 08:59
DX: N80.9 Endometriosis, unspecified (principal); R10.2 Pelvic and perineal pain; I10 Essential (primary) hypertension
CPT/HCPCS: 81001; 81025; 99284

== ENCOUNTER 2017-01-02 08:37 | Emergency (ER) | payer BC ==
[2017-01-02] MEDS ORDERED: NORMAL SALINE 1000 ML 1,000 ML IV ONE (09:24)
[2017-01-02 09:41] LABS: APPEARANCE,URINE CLEAR; BILIRUBIN,URINE NEGATIVE (NEGATIVE); GLUCOSE, URINE NEGATIVE (NEGATIVE); KETONES,URINE NEGATIVE (NEGATIVE); LEUKOCYTE ESTERASE,URINE NEGATIVE (NEGATIVE); NITRITE,URINE NEGATIVE (NEGATIVE); PROTEIN,URINE NEGATIVE (NEGATIVE); URINE SPECIFIC GRAVITY 1.002; UROBILINOGEN,URINE NEGATIVE mg/dL (<2.0)
[2017-01-02 10:02] LABS: ABSOLUTE EOSINOPHILS # (AUTO) 0.2 10^3/uL (0.0-0.6); ABSOLUTE LYMPHOCYTES (AUTO) 2.8 10^3/uL (0.5-4.7); ABSOLUTE MONOCYTES (AUTO) 0.5 10^3/uL (0.1-1.4); ABSOLUTE NEUT (AUTO) 2.8 10^3/uL (1.7-8.2); BASOPHILS % (AUTO) 0.8 % (0-2); EOSINOPHILS % (AUTO) 2.4 % (0-6); HEMOGLOBIN 13.2 g/dL (12.0-15.5); HGB HCT DIFFERENCE -1.4; LYMPHOCYTES % (AUTO) 44.2 % (13-45); MEAN CORPUSCULAR HEMOGLOBIN 30.8 pg (27.0-33.4); MEAN CORPUSCULAR HGB CONC 32.2 g/dL (32.0-36.0); MEAN CORPUSCULAR VOLUME 96 fl (80-97); MONOCYTES % (AUTO) 8.4 % (3-13); RED BLOOD COUNT 4.29 10^6/uL (3.72-5.28); RED CELL DISTRIBUTION WIDTH 13.6 % (11.5-14.0); SEGMENTED NEUTROPHILS % (AUTO) 44.2 % (42-78); WHITE BLOOD COUNT 6.4 10^3/uL (4.0-10.5)
[2017-01-02 10:24] LABS: ALANINE AMINOTRANSFERASE 35 U/L (9-52); ALBUMIN 4.4 g/dL (3.5-5.0); ALKALINE PHOSPHATASE 60 U/L (38-126); ANION GAP 11 (5-19); ASPARTATE AMINO TRANSFERASE 31 U/L (14-36); BILIRUBIN,DIRECT 0.5 mg/dL (0.0-0.4); BILIRUBIN,TOTAL 0.7 mg/dL (0.2-1.3); BLOOD UREA NITROGEN 13 mg/dL (7-20); CALCIUM 9.3 mg/dL (8.4-10.2); CARBON DIOXIDE 25 mmol/L (22-30); CHLORIDE 104 mmol/L (98-107); CREATININE RESULT 0.69 mg/dL (0.52-1.25); GLUCOSE 92 mg/dL (75-110); LIPASE 156.9 U/L (23-300); POTASSIUM 5.1 mmol/L (3.6-5.0); TOTAL PROTEIN 8.4 g/dL (6.3-8.2)
[2017-01-02] MEDS ORDERED: KETOROLAC TROMETHAMINE INJ/PF 30 MG/1 ML SDV IV ONE (11:06)
--- NOTE | 2017-01-02 11:13 | ER Document Report ---
ED General - General Chief Complaint: Abdominal Pain Stated Complaint: ABDOMINAL PAIN Time Seen by Provider: 01/02/17 09:05 TRAVEL OUTSIDE OF THE [place] IN LAST 30 DAYS: No - HPI Patient complains to provider of: Periumbilical abdominal pain Notes: Patient states had recent laparoscopic procedure performed by her CHANGE COORDINATOR looking for endometriosis due to her long history of abdominal pain with no critical findings found for for a an ovarian cyst states last 3 days periumbilical pain with no nausea vomiting fevers chills diarrhea. Upon my evaluation patient is resting currently. Denies any dysuria. - Related Data Allergies/Adverse Reactions: No Known Allergies Allergy (Verified 01/02/17 08:44) Past Medical History - Social History Smoking Status: Current Some Day Smoker Chew tobacco use (# tins/day): No Frequency of alcohol use: None Drug Abuse: None Family History: Reviewed & Not Pertinent Patient has suicidal ideation: No Patient has homicidal ideation: No - Past Medical History Cardiac Medical History: Reports: Hx Hypertension Renal/ Medical History: Denies: Hx Peritoneal Dialysis Past Surgical History: Reports: Hx Gynecologic Surgery - See history of present illness. - Immunizations Hx Diphtheria, Pertussis, Tetanus Vaccination: Yes Review of Systems - Review of Systems Constitutional: No symptoms reported EENT: No symptoms reported Cardiovascular: No symptoms reported Respiratory: No symptoms reported Gastrointestinal: Abdominal pain Genitourinary: No symptoms reported Female Genitourinary: No symptoms reported Musculoskeletal: No symptoms reported Skin: No symptoms reported Hematologic/Lymphatic: No symptoms reported Neurological/Psychological: No symptoms reported -: Yes All other systems reviewed and negative Physical Exam - Vital signs Vitals: Resp 14 01/02/17 08:44 Interpretation: Normal - General General appearance: Appears well, Alert - HEENT Head: Normocephalic, Atraumatic Eyes: Normal Pupils: PERRL - Respiratory Respiratory status: No respiratory distress Chest status: Nontender Breath sounds: Normal Chest palpation: Normal - Cardiovascular Rhythm: Regular Heart sounds: Normal auscultation Murmur: No - Abdominal Inspection: Normal Distension: No distension Bowel sounds: Normal Tenderness: Tender - Tenderness around the umbilicus surgical scar well-healed Organomegaly: No organomegaly - Back Back: Normal, Nontender - Extremities General upper extremity: Normal inspection, Nontender, Normal color, Normal ROM , Normal temperature General lower extremity: Normal inspection, Nontender, Normal color, Normal ROM , Normal temperature, Normal weight bearing. No: Ainsley's sign - Neurological Neuro grossly intact: Yes Cognition: Normal Orientation: AAOx4 Mihir Coma Scale Eye Opening: Spontaneous Mihir Coma Scale Verbal: Oriented Mihir Coma Scale Motor: Obeys Commands Mihir Coma Scale Total: 15 Speech: Normal Motor strength normal: LUE, RUE, LLE, RLE Sensory: Normal - Psychological Associated symptoms: Normal affect, Normal mood - Skin Skin Temperature: Warm Skin Moisture: Dry Skin Color: Normal Course - Re-evaluation Re-evalutation: 01/02/17 14:33 The patient presents with abdominal pain without signs of peritonitis or other life-threatening or serious etiology. The patient appears stable for discharge and has been instructed to return immediately if the symptoms worsen in any way , or in 8-12hr if not improved for re-evaluation. The patient has been instructed to return if the symptoms worsen or change in any way. Of note patient's 3 month history of narcotic prescriptions is very expensive will not treat the patient abdominal pain today with narcotics no signs of abscess no signs of significant pathology on examination or on labs - Vital Signs Vital signs: Temp Pulse Resp BP Pulse Ox 98.2 F 72 20 128/61 H 100 01/02/17 11:25 01/02/17 11:25 01/02/17 11:25 01/02/17 11:25 01/02/17 11:25 - Laboratory Result Diagrams: 01/02/17 09:45 01/02/17 09:45 Laboratory results interpreted by me: 01/02/17 01/02/17 08:50 09:45 Potassium 5.1 H Direct Bilirubin 0.5 H Total Protein 8.4 H Urine Blood SMALL H Discharge - Discharge Clinical Impression: Abdominal pain Qualifiers: Abdominal location: generalized Qualified Code(s): R10.84 - Generalized abdominal pain Condition: Good Disposition: HOME, SELF-CARE Instructions: Abdominal Pain ([facility]) Additional Instructions: Your laboratory studies not show any signs of any significant pathology for your abdominal pain. I will highly recommend follow-up with your CHANGE COORDINATOR for further evaluation and that this may be due to scar tissue from previous surgery. Your CHANGE COORDINATOR family medical doctor can also reiterate your work restrictions. Prescriptions: Dicyclomine HCl [Bentyl 20 mg Tablet] 20 mg PO QID #20 tablet Naproxen [Naprosyn 250 mg Tablet] 250 mg PO DAILY PRN #14 tablet PRN Reason: Forms: Return to Work Referrals: THERESA OCONNELL MD [Primary Care Provider] - Follow up as needed
[2017-01-02 11:53] VITALS: BP 128/61
== END 2017-01-02 11:46 | disposition home or self-care (01) ==
LOC: ER 08:37
DX: R10.84 Generalized abdominal pain (principal); Z98.890 Other specified postprocedural states; F17.200 Nicotine dependence, unspecified, uncomplicated; I10 Essential (primary) hypertension
CPT/HCPCS: 99284; 96374; 36415; 83690; 84703; 85025; 80053; 81001; J1885; J7030

== ENCOUNTER 2017-03-16 21:55 | Emergency (ER) | payer BC ==
[2017-03-16 21:58] VITALS: BP 133/68
[2017-03-16] MEDS ORDERED: KETOROLAC TROMETHAMINE INJ/PF 30 MG/1 ML SDV IM ONE (22:30)
[2017-03-16] MEDS ORDERED: BUPIVACAINE HCL 0.5 % INJ/PF 30 ML SDV INJ ONE (22:30)
[2017-03-16] MEDS ORDERED: DIPHENHYDRAMINE HCL 25 MG CAPSULE PO ONE (22:30)
[2017-03-16] MEDS ORDERED: PENICILLIN V POTASSIUM 500 MG TABLET PO ONE (22:30)
--- NOTE | 2017-03-16 22:31 | ER Document Report ---
ED Oral Problem - General Chief Complaint: Toothache Stated Complaint: MOUTH PAIN Time Seen by Provider: 03/16/17 22:26 TRAVEL OUTSIDE OF THE [place] IN LAST 30 DAYS: No - HPI Patient complains to provider of: Toothache Onset: Last week Onset: Gradual Quality of pain: Achy Severity: Moderate Context: denies: Fractured tooth, Recent antibiotic use, Recent dental extractions, Recent yeast infection, Other Associated symptoms: Headache. denies: None, Chills, Cough, Decreased appetite , Dental decay, Difficulty speaking, Drainage, Drooling, Earache, Facial pain, Fever, Jaw pain, Short of breath, Sweaty, Toothache, Tongue swelling, Unable to swallow, White patches in mouth, Other Relieved by: Nothing Similar symptoms previously: No Recently seen / treated by doctor/dentist: No - Related Data Allergies/Adverse Reactions: No Known Allergies Allergy (Verified 03/16/17 21:55) Past Medical History - Social History Smoking Status: Current Every Day Smoker Chew tobacco use (# tins/day): No Frequency of alcohol use: None Drug Abuse: None Family History: Reviewed & Not Pertinent Patient has suicidal ideation: No Patient has homicidal ideation: No - Past Medical History Cardiac Medical History: Reports: Hx Hypertension Renal/ Medical History: Denies: Hx Peritoneal Dialysis Past Surgical History: Reports: Hx Gynecologic Surgery - See history of present illness. - Immunizations Hx Diphtheria, Pertussis, Tetanus Vaccination: Yes Review of Systems - Review of Systems Constitutional: No symptoms reported EENT: See HPI Cardiovascular: No symptoms reported Respiratory: No symptoms reported -: Yes All other systems reviewed and negative Physical Exam - Vital signs Vitals: Temp Pulse Resp BP Pulse Ox 98.8 F 77 18 133/68 H 100 03/16/17 21:57 03/16/17 21:57 03/16/17 21:57 03/16/17 21:57 03/16/17 21:57 - General General appearance: Appears well, Alert In distress: None - HEENT Mouth/Lips: Normal, Other - tenderness of left lower wisdom tooth soscket and tooth 18 without swelling or induration. No: Angioedema, Caries, Dental fracture, Laceration, Lesions Mucous membranes: Normal Pharynx: Normal. No: Peritonsillar abscess, Retropharyngeal abscess, Potential airway comprom. Neck: Normal, Lymphadenopathy, Other - no ludwigs angina Course - Re-evaluation Re-evalutation: 03/17/17 22:45 Presentation is most consistent with likely an infected tooth. Airway is patent. Vitals within normal limits. Patient is able swallow without any difficulty. There is no significant facial swelling. Patient will be started on antibiotics. I've instructed to follow-up with dentistry as earliest ability for definitive management. Return precautions and follow-up recommendations have been discussed at length. - Vital Signs Vital signs: Temp Pulse Resp BP Pulse Ox 98.8 F 77 18 133/68 H 100 03/16/17 21:57 03/16/17 21:57 03/16/17 21:57 03/16/17 21:57 03/16/17 21:57 Discharge - Discharge Clinical Impression: Toothache Condition: Good Disposition: HOME, SELF-CARE Instructions: Penicillin V K ([facility]), Toothache ([facility]) Prescriptions: Penicillin V Potassium [Penicillin Vk 500 mg Tablet] 500 mg PO BID #20 tablet
[2017-03-16] MEDS ORDERED: OXYCODONE-ACETAMINOPHEN 5-325 MG TABLET PO ONE (23:24)
== END 2017-03-16 23:48 | disposition home or self-care (01) ==
LOC: ER 21:55
DX: K08.89 Other specified disorders of teeth and supporting structures (principal); F17.200 Nicotine dependence, unspecified, uncomplicated
CPT/HCPCS: 99282; 96372; J1885

== ENCOUNTER 2018-08-07 20:06 | Emergency (ER) | payer BC ==
[2018-08-07] MEDS ORDERED: TETRACAINE HCL 0.5% OPH SOLN 4 ML ONE (22:13)
[2018-08-07] MEDS ORDERED: LIDOCAINE 2% INJ-PF (20 MG/ML) 10 ML AMPUL NEB ONE (22:20)
[2018-08-07] MEDS ORDERED: BENZONATATE 100 MG CAPSULE PO ONE (22:21)
--- NOTE | 2018-08-07 22:31 | ER Document Report ---
ED General - General Chief Complaint: Eye Pain Stated Complaint: COUGH/EYE PAIN Time Seen by Provider: 08/07/18 21:18 Primary Care Provider: LARA TERRAZAS DO [ACTIVE STAFF] - Follow up tomorrow Notes: Patient is a 33-year-old female without chronic medical problems who presents with mild right eye discomfort, blurring of vision to the right eye and a persistent cough. Patient states that she was diagnosed with influenza earlier in the week, treated accordingly and states that although her fever and malaise has improved, she has continued to have a persistent, nonproductive cough. States this morning after an episode of coughing she noticed that her vision was becoming increasingly blurred to the right eye. She also notes a mild, throbbing, discomfort to the right eye. Nothing has improved or worsened her symptoms. She denies any blurring of vision to the left eye. No history of similar symptoms in the past. Has not seen her primary care doctor regarding today's concerns. Not use corrective lenses or glasses. TRAVEL OUTSIDE OF THE [place] IN LAST 30 DAYS: No - Related Data Allergies/Adverse Reactions: No Known Allergies Allergy (Verified 03/16/17 21:55) Past Medical History - General Information source: Patient - Social History Smoking Status: Never Smoker Frequency of alcohol use: None Drug Abuse: None Family History: Reviewed & Not Pertinent - Past Medical History Cardiac Medical History: Reports: Hx Hypertension Renal/ Medical History: Denies: Hx Peritoneal Dialysis Past Surgical History: Reports: Hx Gynecologic Surgery - See history of present illness. - Immunizations Hx Diphtheria, Pertussis, Tetanus Vaccination: Yes Review of Systems - Review of Systems Notes: Constitutional: Negative for fever. HENT: Negative for sore throat. Eyes: Positive for visual changes. Cardiovascular: Negative for chest pain. Respiratory: Positive for cough Gastrointestinal: Negative for abdominal pain, vomiting or diarrhea. Genitourinary: Negative for dysuria. Musculoskeletal: Negative for back pain. Skin: Negative for rash. Neurological: Negative for headaches, weakness or numbness. 10 point ROS negative except as marked above and in HPI. Physical Exam - Vital signs Vitals: Temp Pulse Resp BP Pulse Ox 98.9 F 93 18 142/84 H 98 08/07/18 20:17 08/07/18 20:17 08/07/18 20:17 08/07/18 20:17 08/07/18 20:17 Interpretation: Normal Notes: PHYSICAL EXAMINATION: GENERAL: Well-appearing, well-nourished and in no acute distress. HEAD: Atraumatic, normocephalic. EYES: Subconjunctival hemorrhage mostly located to the inferior temporal portion of the right eye. Pupillary response intact. Extraocular motions are intact. Ocular pressure 21 on the right. Visual acuity is 20/70 on the right, 20/30 on left. Ocular ultrasound does not reveal any evidence of vitreous hemorrhage or retinal detachment. ENT: nares patent, oropharynx clear without exudates. Moist mucous membranes. NECK: Normal range of motion, supple without lymphadenopathy LUNGS: Breath sounds clear to auscultation bilaterally and equal. No wheezes rales or rhonchi. HEART: Regular rate and rhythm without murmurs ABDOMEN: Soft, nontender, normoactive bowel sounds. No guarding, no rebound. No masses appreciated. EXTREMITIES: Normal range of motion, no pitting or edema. No cyanosis. NEUROLOGICAL: No focal neurological deficits. Moves all extremities spontaneously and on command. PSYCH: Normal mood, normal affect. SKIN: Warm, Dry, normal turgor, no rashes or lesions noted. Course - Re-evaluation Re-evalutation: 08/07/18 22:29 Patient presents with blurring of vision to the right eye that started this morning after vigorous episode of coughing. The patient denies any significant pain to the eye states it is more of a mild pressure or mild discomfort. On ophthalmic exam she has a subconjunctival hemorrhage mostly located to the inferior temporal portion of the right eye. Pupillary response intact. Extraocular motions are intact. Ocular pressure 21 on the right. Visual acuity is 20/70 on the right, 20/30 on left. Patient does not usually wear corrective lenses. Ocular ultrasound does not reveal any evidence of vitreous hemorrhage or retinal detachment. 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 Clinical history and exam are not consistent with acute CVA, optic neuritis, retinal detachment, and no ultrasound findings to suggest vitreous hemorrhage. I have advised the patient needs to follow-up with our senior reservoir engineer within the next 24 hours. Patient also complained of ongoing cough likely secondary to her recent diagn osis of influenza for which she has already been treated. Chest x-ray without evidence of acute infiltrate. I do not see an indication for labs. At this time will discharge with return precautions and follow-up recommendations. Verbal discharge instructions given a the bedside and opportunity for questions given. Medication warnings reviewed. Patient is in agreement with this plan and has verbalized understanding of return precautions and the need for definitive eye care follow-up within the next 24 hours. - Vital Signs Vital signs: Temp Pulse Resp BP Pulse Ox 97.3 F 71 17 116/80 100 08/07/18 23:40 08/07/18 23:40 08/07/18 23:40 08/07/18 23:40 08/07/18 23:40 Discharge - Discharge Clinical Impression: Valsalva retinopathy, Blurry vision, right eye, Persistent cough Condition: Stable Disposition: HOME, SELF-CARE Additional Instructions: Please follow-up with the eye physician within the next 24 hours. I suspect that you have something called Valsalva retinopathy from coughing so much. Your chest x-ray is normal today. You have been started on Tessalon Perles to assist with your cough. Please take as directed. Your also given a lidocaine nebulizer here in the emergency department to hopefully reduce her cough. These return to the emergency department immediately if you develop worsening of your eye discomfort, worsening of your vision, pass out, become short of breath, or have any other symptoms that are concerning to you. Referrals: LARA TERRAZAS DO [ACTIVE STAFF] - Follow up tomorrow
--- NOTE | 2018-08-07 22:54 | RADIOLOGY REPORT (SQ) ---
EXAM DESCRIPTION: XR CHEST 1 VIEW COMPLETED DATE/TME: 08/07/2018 22:21 CLINICAL HISTORY: 33 years Female, persistent cough COMPARISON: None. NUMBER OF VIEWS/TECHNIQUE: 1/AP FINDINGS: Adequate lung volume, clear parenchyma, normal cardiac silhouette, and intact bony thorax. IMPRESSION: No acute cardiopulmonary findings.
[2018-08-07 23:42] VITALS: BP 116/80
== END 2018-08-07 23:42 | disposition home or self-care (01) ==
LOC: ER 20:06
DX: H35.00 Unspecified background retinopathy (principal); H11.31 Conjunctival hemorrhage, right eye; H53.8 Other visual disturbances; R05 Cough; I10 Essential (primary) hypertension
CPT/HCPCS: 94640; 99283; 71045; J3490 ×2

== ENCOUNTER 2019-05-19 07:52 | Emergency (ER) | payer OTHER, BC ==
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
[2019-05-19 08:25] LABS: ABSOLUTE EOSINOPHILS # (AUTO) 0.1 10^3/uL (0.0-0.6); ABSOLUTE LYMPHOCYTES (AUTO) 2.1 10^3/uL (0.5-4.7); ABSOLUTE MONOCYTES (AUTO) 0.7 10^3/uL (0.1-1.4); BASOPHILS % (AUTO) 0.4 % (0-2); EOSINOPHILS % (AUTO) 1.7 % (0-6); HEMATOCRIT 37.4 % (36.0-47.0); HEMOGLOBIN 12.6 g/dL (12.0-15.5); LYMPHOCYTES % (AUTO) 35.4 % (13-45); MEAN CORPUSCULAR HEMOGLOBIN 32.1 pg (27.0-33.4); MEAN CORPUSCULAR HGB CONC 33.6 g/dL (32.0-36.0); MEAN CORPUSCULAR VOLUME 96 fl (80-97); MONOCYTES % (AUTO) 11.5 % (3-13); PLATELET COUNT 317 10^3/uL (150-450); RED BLOOD COUNT 3.92 10^6/uL (3.72-5.28); RED CELL DISTRIBUTION WIDTH 13.8 % (11.5-14.0); TOTAL CELLS COUNTED % (AUTO) 100 %; WHITE BLOOD COUNT 5.9 10^3/uL (4.0-10.5)
[2019-05-19 08:41] LABS: ANION GAP 10 (5-19); BLOOD UREA NITROGEN 10 mg/dL (7-20); CALCIUM 9.5 mg/dL (8.4-10.2); CARBON DIOXIDE 26 mmol/L (22-30); CHLORIDE 107 mmol/L (98-107); GLUCOSE 97 mg/dL (75-110); POTASSIUM 4.1 mmol/L (3.6-5.0)
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
[2019-05-19 10:24] VITALS: BP 124/68
--- NOTE | 2019-05-19 18:26 | EKG REPORT ---
SEVERITY:- NORMAL ECG - SINUS RHYTHM : Confirmed by: Warren Harvey 19-May-2019 18:26:00
== END 2019-05-19 10:43 | disposition home or self-care (01) ==
LOC: ER 07:52
DX: S09.90XA Unspecified injury of head, initial encounter (principal); S13.9XXA Sprain of joints and ligaments of unspecified parts of neck, initial encounter; S20.219A Contusion of unspecified front wall of thorax, initial encounter; Z88.6 Allergy status to analgesic agent; R07.9 Chest pain, unspecified; V49.40XA Driver injured in collision with unspecified motor vehicles in traffic accident, initial encounter; I10 Essential (primary) hypertension
CPT/HCPCS: 36415; 70450; 71250; 72125; 80048; 81025; 84484; 85025; 93005; 93010; 99285

== ENCOUNTER 2020-04-08 05:56 | Emergency (ER) | payer SELFPAY ==
[2020-04-08] MEDS ORDERED: ACETAMINOPHEN 325 MG TABLET PO ONE (06:24)
--- NOTE | 2020-04-08 08:08 | ER Document Report ---
ED Extremity Problem, Upper - General Chief Complaint: Arm Pain Stated Complaint: RIGHT ARM PAIN Time Seen by Provider: 04/08/20 08:07 Primary Care Provider: THERESA OCONNELL MD [Primary Care Provider] - Follow up as needed TRAVEL OUTSIDE OF THE [place] IN LAST 30 DAYS: No - HPI Notes: 34-year-old female to the emergency department with complaints of right upper arm pain that radiates down into her forearm and into the hand with some numbness and tingling. Began about 3 weeks ago after she had her Nexplanon taken out of this arm. She states she had another Nexplanon placed in the left arm and has not had any problems with the left arm. She states that sometimes her arm feels little weak. She states that she has not had any fevers or chills. She feels like the arm is a little bit swollen. She states that the site where the Nexplanon was taken out has a knot there. She denies any fevers or chills. She is right-hand dominant. She has not recently been traveling, she has no history of DVT, she is not on any exogenous hormones. Not recently had any surgery. She denies any chest pain or shortness of breath. - Related Data Allergies/Adverse Reactions: codeine Adverse Reaction (Verified 04/08/20 06:17) Facial swelling Home Medications: CONTROL Past Medical History - General Information source: Patient - Social History Smoking Status: Former Smoker Frequency of alcohol use: None Drug Abuse: None Family History: Reviewed & Not Pertinent - Past Medical History Cardiac Medical History: Reports: Hx Hypertension Renal/ Medical History: Denies: Hx Peritoneal Dialysis Past Surgical History: Reports: Hx Gynecologic Surgery - See history of present illness. - Immunizations Hx Diphtheria, Pertussis, Tetanus Vaccination: Yes Review of Systems - Review of Systems Constitutional: denies: Fever EENT: No symptoms reported Cardiovascular: denies: Chest pain, Palpitations, Heart racing, Dizziness, Lightheaded Respiratory: denies: Cough, Short of breath Gastrointestinal: denies: Abdominal pain, Diarrhea, Nausea, Vomiting Genitourinary: No symptoms reported Musculoskeletal: Joint pain - Right arm pain Skin: See HPI - Nodule where Was taken on the right upper arm Hematologic/Lymphatic: No symptoms reported Neurological/Psychological: No symptoms reported -: Yes All other systems reviewed and negative Physical Exam - Vital signs Vitals: Temp Pulse Resp BP Pulse Ox 98.4 F 90 15 142/83 H 99 04/08/20 06:09 04/08/20 06:09 04/08/20 06:09 04/08/20 06:09 04/08/20 06:09 Interpretation: Hypertensive - General General appearance: Appears well, Alert In distress: None - HEENT Head: Normocephalic, Atraumatic Eyes: Normal Pupils: PERRL - Respiratory Respiratory status: No respiratory distress Chest status: Nontender Breath sounds: Normal. No: Rales, Rhonchi, Wheezing Chest palpation: Normal - Cardiovascular Rhythm: Regular Heart sounds: Normal auscultation Murmur: No - Abdominal Inspection: Normal Distension: No distension Bowel sounds: Normal Tenderness: Nontender. No: Tender, McBurney's point, Nickerson's sign Organomegaly: No organomegaly - Back Back: Normal, Nontender - Extremities Arm: Tender - There is tenderness to palpation to the medial aspect of the right upper arm and forearm. Noted that there is a little nodule where the Nexplanon was taken out. Arm does appear a little bit more swollen in comparison to the left. There is no erythema or warmth. There is tenderness along the medial aspect only of the forearm and into the hands. Brilliandeer Looper is about 4 out of 5. Radial pulses are intact and equal. There is no snuffbox tenderness. Cap refill is less than 2 seconds. There is no tenderness to palpation over the olecranon or over where the ulnar nerve applied. There is no tenderness to palpation over the right shoulder. - Neurological Neuro grossly intact: Yes Cognition: Normal Orientation: AAOx4 Mihir Coma Scale Eye Opening: Spontaneous [place] Coma Scale Verbal: Oriented [place] Coma Scale Motor: Obeys Commands [place] Coma Scale Total: 15 Speech: Normal Cranial nerves: Normal Cerebellar coordination: Normal Motor strength normal: LUE, RUE, LLE, RLE Additional motor exam normals: Equal crumb packer Sensory: Normal - Psychological Associated symptoms: Normal affect, Normal mood - Skin Skin Temperature: Warm Skin Moisture: Dry Skin Color: Normal Course - Re-evaluation Re-evalutation: 04/08/20 10:29 Impression: Right arm pain, tingling into the right arm. Suspect a arm peripheral neuropathy. Could be from overuse or related to the Nexplanon removal since that is when her symptoms started. X-rays reassuring for no retained foreign body and Doppler is negative for clot. Plan will be to send h ome with NSAIDs, Lidoderm, Medrol Dosepak. We will have her follow-up with PCP and orthopedist and see about getting a nerve conduction study. Discussed these results with patient and she agrees with the plan. She is and instructed to return immediately if her symptoms worsen such as fever, redness, worsening pain, worsening swelling. - Vital Signs Vital signs: Temp Pulse Resp BP Pulse Ox 98.4 F 90 15 142/83 H 99 04/08/20 06:09 04/08/20 06:09 04/08/20 06:09 04/08/20 06:09 04/08/20 06:09 - Diagnostic Test Radiology reviewed: Image reviewed, Reports reviewed Discharge - Discharge Clinical Impression: Right arm pain, Tingling of right upper extremity Condition: Stable Disposition: HOME, SELF-CARE Instructions: Arm Pain, Nonspecific ([facility]) Additional Instructions: Today are seen in the emergency department for right arm pain with tingling down the side of the arm. Please follow-up with orthopedist as well as her primary care. Take medicines as prescribed. Return if worsening symptoms such as inability to move the arm, increased swelling, redness, fevers. Complete all steroids. No lifting greater than 10 pounds until cleared by either primary care or orthopedist. Prescriptions: Lidocaine [Lidoderm 5% (700 mg) Transdermal Patch] 1 patch TP DAILY #30 adh..patch Methylprednisolone [Medrol Dosepack (4 mg/Tab) 21 Tab/Dosepak] 4 mg PO ASDIR PRN #21 tab.ds.pk PRN Reason: Diclofenac Sodium [Voltaren 25 Mg Tablet] 25 mg PO TID #20 tablet.dr Forms: Special Work Note Referrals: THERESA OCONNELL MD [Primary Care Provider] - Follow up in 3-5 days JAYSHREE GOSS MD [ACTIVE STAFF] - Follow up in 3-5 days
[2020-04-08] MEDS ORDERED: KETOROLAC TROMETHAMINE 60 MG/2 ML SDV IM ONE (08:29)
--- NOTE | 2020-04-08 08:50 | RADIOLOGY REPORT (SQ) ---
EXAM DESCRIPTION: HUMERUS RIGHT IMAGES COMPLETED DATE/TIME: 04/08/2020 8:39 am REASON FOR STUDY: arm pain after nexplanon removal COMPARISON: None. NUMBER OF VIEWS: Two views right humerus LIMITATIONS: None. FINDINGS: There is no acute or significant bone, joint or soft tissue abnormality. OTHER: No other significant finding. IMPRESSION: NORMAL STUDY. TECHNICAL DOCUMENTATION: JOB ID: [id number] Reading location - IP/workstation name: [email or web address]
[2020-04-08 10:32] VITALS: BP 132/83
--- NOTE | 2020-04-08 10:41 | RADIOLOGY REPORT (SQ) ---
EXAM DESCRIPTION: VENOUS UNILATERAL UPPER IMAGES COMPLETED DATE/TIME: 04/08/2020 10:26 am REASON FOR STUDY: right upper arm pain and swelling COMPARISON: None. TECHNIQUE: Dynamic and static franco scale and color images acquired of the right arm venous system. S elected spectral images acquired with additional compression and augmentation maneuvers. The contrala teral subclavian vein and internal jugular vein were also imaged. Images stored on PACS. LIMITATIONS: None. FINDINGS: INTERNAL JUGULAR VEIN: Normal phasicity, compression, augmentation. No visualized echogeni c material on franco scale. No defects on color images. Comparison opposite side normal. SUBCLAVIAN VEIN: Normal compression, augmentation. No visualized echogenic material on franco scale. No defects on color images. AXILLARY VEIN: Normal compression, augmentation. No visualized echogenic material on franco scale. No d efects on color images. BRACHIAL VEIN: Normal compression, augmentation. No visualized echogenic material on franco scale. No d efects on color images. BASILIC VEIN: Normal compression, augmentation. No visualized echogenic material on franco scale. No de fects on color images. CEPHALIC VEIN: Normal compression, augmentation. No visualized echogenic material on franco scale. No d efects on color images. OTHER: No other significant finding. CONTRALATERAL SUBCLAVIAN VEIN AND INTERNAL JUGULAR VEIN: Normal phasicity, compression and augmentation. No visualized echogenic material on franco scale. No de fects on color images. IMPRESSION: NO EVIDENCE DVT OR SVT IN THE RIGHT ARM. TECHNICAL DOCUMENTATION: JOB ID: [id number] 2010 [email or web address]- All Rights Reserved Reading location - IP/workstation name: [email or web address]
== END 2020-04-08 10:29 | disposition home or self-care (01) ==
LOC: ER 05:56
DX: M79.621 Pain in right upper arm (principal); R20.2 Paresthesia of skin; R20.0 Anesthesia of skin; R23.8 Other skin changes; I10 Essential (primary) hypertension; Z97.5 Presence of (intrauterine) contraceptive device; Z98.890 Other specified postprocedural states; Z87.891 Personal history of nicotine dependence
CPT/HCPCS: 99284; 96372; 93971; 73060; J1885

== ENCOUNTER 2020-05-16 04:06 | Emergency (ER) | payer SELFPAY ==
[2020-05-16 05:39] VITALS: BP 135/79
--- NOTE | 2020-05-16 07:03 | ER Document Report ---
ED General - General Chief Complaint: Arm Pain Stated Complaint: WORK CLEARANCE FOR RIGHT ARM Time Seen by Provider: 05/16/20 06:55 Primary Care Provider: THERESA OCONNELL MD [Primary Care Provider] - Follow up as needed Mode of Arrival: Ambulatory Information source: Patient Notes: Patient is a 35-year-old -[place] female who came in here a little bit u nder a month ago with some paresthesias and some pain in her right arm after she had a Nexplanon implant removed. She was put on a lifting restriction here by the provider. Patient is having more use of her right arm at this time and would like to be cleared to go back to her employer. TRAVEL OUTSIDE OF THE [place] IN LAST 30 DAYS: No - Related Data Allergies/Adverse Reactions: codeine Adverse Reaction (Verified 04/08/20 06:17) Facial swelling Past Medical History - Social History Smoking Status: Never Smoker Family History: Reviewed & Not Pertinent - Past Medical History Cardiac Medical History: Reports: Hx Hypertension Renal/ Medical History: Denies: Hx Peritoneal Dialysis Past Surgical History: Reports: Hx Gynecologic Surgery - See history of present illness. - Immunizations Hx Diphtheria, Pertussis, Tetanus Vaccination: Yes Review of Systems - Review of Systems Notes: Constitutional: No fevers. No chills. EENT: No eye redness. No eye pain. No ear pain. No sore throat. Cardiovascular: No chest pain. No palpitations. Respiratory: No cough. No shortness of breath. No respiratory distress. Gastrointestinal: No abdominal pain. No nausea, vomiting, or diarrhea. Genitourinary: Atraumatic. No lesions. No pain. No discharge. Musculoskeletal: Atraumatic. No swelling. No deformities. Skin: No rash or lesions. Lymphatic: No swollen lymph nodes. Neurologic: No headache. No syncope. Psychiatric: No suicidal or homicidal ideation. Physical Exam - Vital signs Vitals: Temp Pulse Resp BP Pulse Ox 98.2 F 70 16 135/79 H 98 05/16/20 04:18 05/16/20 04:18 05/16/20 04:18 05/16/20 04:18 05/16/20 04:18 - Notes Notes: General: Well-developed, well-nourished. In no acute distress. Non-toxic appearing. Cardiac: Well-perfused. Regular rate and rhythm. No murmurs, rubs, or gallops. Pulmonary: No respiratory distress. No cyanosis. Bilateral lung fiels are clear to auscultation. Abdominal: Non-distended. Non-rigid. Bowels sounds are present in all four quadrants. No guarding or rebound. HEENT: Head is atraumatic. Conjunctivae not reddened. No tearing. PERRL. EOMI. Orbits atraumatic. No periorbital swelling or erythema. Oropharynx is without erythema, swelling, or exudates. Neck: Supple. No adenopathy. No meningismus. Dermatologic: Warm with good turgor. No rash. Atraumatic. Chest: Atraumatic. No chest wall tenderness to palpation. Musculoskeletal: Right upper extremity is evaluated. Full range of motion. No swelling. Good strength. Genitourinary: Examination deferred Neurologic: No gross neurologic deficits. Psychiatric: Normal mood. Course - Vital Signs Vital signs: Temp Pulse Resp BP Pulse Ox 98.2 F 70 16 135/79 H 98 05/16/20 04:18 05/16/20 04:18 05/16/20 04:18 05/16/20 04:18 05/16/20 04:18 Discharge - Discharge Clinical Impression: Right arm pain Condition: Good Disposition: HOME, SELF-CARE Additional Instructions: Your arm appears to be FUNCTIONING normally. You may return to work. If you have any inability to do your job, you will need to see your primary care doctor or specialist to evaluate you in clear you back to work. Forms: Special Work Note Referrals: THERESA OCONNELL MD [Primary Care Provider] - Follow up as needed
== END 2020-05-16 08:00 | disposition home or self-care (01) ==
LOC: ER 04:06
DX: M79.601 Pain in right arm (principal); I10 Essential (primary) hypertension; Z88.6 Allergy status to analgesic agent
CPT/HCPCS: 99281